=== PATIENT | female | born 1945 | race Two or more races ===

== ENCOUNTER 2025-07-09 07:10 | Outpatient (CLI) | payer OTHER ==
[2025-07-09] MEDS ORDERED: VASOFLEX HD CA1 EACH PO (12:11)
[2025-07-09] MEDS ORDERED: SYNTHROID88 MCG PO (12:11)
[2025-07-09] MEDS ORDERED: LOSARTAN POTASS25 MG PO (12:11)
== END 2025-07-09 07:14 | disposition home or self-care (01) ==
LOC: RAD 07:10
PROVIDERS: ATTEND Surgery
DX: R19.5 Other fecal abnormalities (principal); K57.32 Diverticulitis of large intestine without perforation or abscess without bleeding; D37.4 Neoplasm of uncertain behavior of colon

== ENCOUNTER 2025-07-09 10:05 | Inpatient (IN) | payer OTHER ==
[~2025-07-09] VITALS: Ht 157.5 cm; Wt 50.8 kg
[2025-07-09] MEDS ORDERED: SYNTHROID88 MCG PO (12:11)
[2025-07-09] MEDS ORDERED: VASOFLEX HD CA1 EACH PO (12:11)
[2025-07-09] MEDS ORDERED: LOSARTAN POTASS25 MG PO (12:11)
[2025-07-13] MEDS ORDERED: LIDOCAINE HCL 1%/EPINEPHRINE 20ML VIAL IJ ONE (12:30)
[2025-07-13] MEDS ORDERED: CEFTRIAXONE SODIUM 2,000 MG VIAL IV ONE (12:30)
[2025-07-13] MEDS ORDERED: METRONIDAZOLE/SODIUM CHLORIDE 500 MG/100 ML PIGGYBACK IV ONE (12:30)
[2025-07-13] MEDS ORDERED: BUPIVACAINE HCL 30 ML VIAL IJ ONE (12:30)
[2025-07-13] MEDS ORDERED: MORPHINE SULFATE 4 MG/ML CARTRIDGE IV PRN (16:15)
[2025-07-13] MEDS ORDERED: 0.9 % SODIUM CHLORIDE 1,000 ML IV SCH (16:15)
[2025-07-13] MEDS ORDERED: ONDANSETRON HCL 2 MG/ML VIAL IV PRN (16:15)
[2025-07-13] MEDS ORDERED: OxyCODONE HCL 5 MG TABLET (ROXICODONE) PO PRN (16:15)
[2025-07-13] MEDS ORDERED: DEXTROSE 50 % IN WATER 0.5 G/ML DISP.SYRIN IV PRN (16:15)
[2025-07-13] MEDS ORDERED: HYOSCYAMINE SULFATE 0.125 MG TAB.SUBL SL SCH (17:00)
[2025-07-13] MEDS ORDERED: METRONIDAZOLE/SODIUM CHLORIDE 500 MG/100 ML PIGGYBACK IV SCH (17:00)
[2025-07-13] MEDS ORDERED: MORPHINE SULFATE 4 MG/ML VIAL IV ONE (17:05)
[2025-07-13] MEDS ORDERED: SUGAMMADEX SODIUM 200 MG/2 ML VIAL IV SCH (17:15)
[2025-07-13 19:46] LABS: BUN CREA RATIO 10.0 (7.0-25.0); CREATININE SERUM 0.6 mg/dL (0.55-1.02); GFR 96.43; GLUCOSE FASTING 176.0 mg/dL (65-100); OSMOLALITY SERUM 283.0 MOSM/KG (275-295)
[2025-07-13] MEDS ORDERED: ACETAMINOPHEN 500 MG GEL..CAP PO SCH (20:00)
[2025-07-13 20:07] LABS: BASO % 0.1 % (0.1-1.2); EOS # 0.00 (0.04-0.54); EOS % 0.0 % (0.7-7.0); LYMPH # 0.43 (1.18-3.74); LYMPH % 2.5 % (19.3-53.1); MEAN PLATELET VOLUME 10.00 fl (9.4-12.4); MONO # 0.60 (0.24-0.82); MONO % 3.5 % (4.7-12.5); NEUT # 15.92 (1.56-6.13); NEUT % 93.7 % (34.0-71.1); RED CELL DISTRIBUTION WIDTH 14.8 % (11.6-14.4)
[2025-07-13] MEDS ORDERED: LEVALBUTEROL HCL 0.63 MG/3 ML SOLUTION IH SCH (20:33)
[2025-07-13] MEDS ORDERED: POTASSIUM PHOS,M-BASIC-D-BASIC 3 MM/ML VIAL IV ONE (20:45)
[2025-07-13] MEDS ORDERED: ENALAPRILAT DIHYDRATE 1.25 MG/ML VIAL IV PRN (20:45)
[2025-07-13] MEDS ORDERED: FAMOTIDINE/PF 20 MG/2 ML VIAL IV PUSH SCH (21:00)
[2025-07-13 21:40] VITALS: BP 160/76; O2SAT 95
[2025-07-14 01:07] VITALS: BP 134/65; O2SAT 97
[2025-07-14 06:09] LABS: BASO % 0.2 % (0.1-1.2); EOS # 0.06 (0.04-0.54); EOS % 0.3 % (0.7-7.0); LYMPH # 0.37 (1.18-3.74); LYMPH % 2.0 % (19.3-53.1); MEAN PLATELET VOLUME 10.20 fl (9.4-12.4); MONO # 0.57 (0.24-0.82); MONO % 3.1 % (4.7-12.5); NEUT # 17.54 (1.56-6.13); NEUT % 94.0 % (34.0-71.1); RED CELL DISTRIBUTION WIDTH 14.2 % (11.6-14.4)
[2025-07-14 07:04] LABS: BUN CREA RATIO 10.0 (7.0-25.0); CREATININE SERUM 0.49 mg/dL (0.55-1.02); GFR 121.83; GLUCOSE FASTING 141.0 mg/dL (65-100); OSMOLALITY SERUM 275.0 MOSM/KG (275-295)
[2025-07-14] MEDS ORDERED: LOSARTAN POTASSIUM 25 MG TABLET PO SCH (09:00)
[2025-07-14 09:18] VITALS: BP 143/78; O2SAT 94
[2025-07-14] MEDS ORDERED: MAGNESIUM SULFATE IN WATER 50 ML IV NR (12:20)
[2025-07-14] MEDS ORDERED: POTASSIUM PHOS,M-BASIC-D-BASIC 3 MM/ML VIAL IV NR (13:30)
[2025-07-14 16:15] VITALS: BP 108/53; O2SAT 96
[2025-07-14] MEDS ORDERED: ENOXAPARIN SODIUM 40 MG/0.4 ML SYRINGE SUBCUTANEO SCH (17:00)
[2025-07-15 01:50] VITALS: BP 102/54; O2SAT 98
[2025-07-15] MEDS ORDERED: PATIENTS OWN MEDICATION (MEDICAMENTO EN PISO) PO SCH (06:00)
[2025-07-15 06:57] LABS: BUN CREA RATIO 13.0 (7.0-25.0); CREATININE SERUM 0.63 mg/dL (0.55-1.02); GFR 91.16; GLUCOSE FASTING 109.0 mg/dL (65-100); OSMOLALITY SERUM 284.0 MOSM/KG (275-295)
[2025-07-15] MEDS ORDERED: ENOXAPARIN SODIUM 40 MG/0.4 ML SYRINGE SUBCUTANEO SCH (09:00)
[2025-07-15 09:06] VITALS: BP 152/73; O2SAT 95
[2025-07-15 11:11] LABS: BASO % 0.1 % (0.1-1.2); EOS # 0.00 (0.04-0.54); EOS % 0.0 % (0.7-7.0); LYMPH # 0.35 (1.18-3.74); LYMPH % 2.9 % (19.3-53.1); MEAN PLATELET VOLUME 10.20 fl (9.4-12.4); MONO # 0.45 (0.24-0.82); MONO % 3.7 % (4.7-12.5); NEUT # 11.29 (1.56-6.13); NEUT % 93.0 % (34.0-71.1); RED CELL DISTRIBUTION WIDTH 14.7 % (11.6-14.4)
[2025-07-15] MEDS ORDERED: POTASSIUM PHOS,M-BASIC-D-BASIC 15 MM in 0.9 % SODIUM CHLORIDE 250 ML IV ONE (13:00)
[2025-07-15] MEDS ORDERED: LACTOBACILLUS ACIDOPHILUS 1 CAP CAP PO SCH (17:00)
[2025-07-15 17:03] VITALS: BP 131/74; O2SAT 96
[2025-07-16 01:58] VITALS: BP 132/75; O2SAT 99
[2025-07-16] MEDS ORDERED: HYOSCYAMINE0.125 M1 SL (07:54)
[2025-07-16] MEDS ORDERED: PEPCID AC20 MG PO (07:54)
[2025-07-16] MEDS ORDERED: TRAM1TAB98 PO (07:55)
[2025-07-16 08:00] VITALS: BP 166/77; O2SAT 91
== END 2025-07-16 15:24 | disposition home or self-care (01) | DRG 330 ==
LOC: EDUNIT# 10:15 → O/R 07-13 09:00 → SURH 07-13 09:00 → SURG 07-13 17:28 → SURH 07-13 18:12
PROVIDERS: Internal Medicine Geriatric Medicine; ADMIT Surgery; ATTEND Surgery
PROC: 0DBP4ZZ Excision of Rectum, Percutaneous Endoscopic Approach (ICD-10-PCS; 2025-07-13)
PROC: 8E0W4CZ Robotic Assisted Procedure of Trunk Region, Percutaneous Endoscopic Approach (ICD-10-PCS; 2025-07-13)
PROC: 0DJD8ZZ Inspection of Lower Intestinal Tract, Via Natural or Artificial Opening Endoscopic (ICD-10-PCS; 2025-07-13)
PROC: 0DTN4ZZ Resection of Sigmoid Colon, Percutaneous Endoscopic Approach (ICD-10-PCS; principal; 2025-07-13 15:15)
PROC: 3E0F7GC Introduction of Other Therapeutic Substance into Respiratory Tract, Via Natural or Artificial Opening (ICD-10-PCS; 2025-07-15)
DX: K57.32 Diverticulitis of large intestine without perforation or abscess without bleeding (principal); K92.1 Melena; K66.0 Peritoneal adhesions (postprocedural) (postinfection); J45.20 Mild intermittent asthma, uncomplicated; D37.4 Neoplasm of uncertain behavior of colon; I10 Essential (primary) hypertension; E03.9 Hypothyroidism, unspecified; D72.828 Other elevated white blood cell count; E83.39 Other disorders of phosphorus metabolism; E83.42 Hypomagnesemia
CPT/HCPCS: 44207; 44213; 94640; S2900